=== PATIENT | male | born 1950 | race Caucasian/White ===

== ENCOUNTER 2019-08-28 07:52 | Inpatient (IN) | payer BC, OTHER, MEDICARE ==
[~2019-08-28] VITALS: Ht 180.3 cm; Wt 107.5 kg
[2019-08-28 16:00] VITALS: BP 140/82
[2019-08-28] MEDS ORDERED: DEXTROSE 50% 50 ML SYRINGE IV PRN (16:30)
[2019-08-28] MEDS ORDERED: GLUCOSE 4GM CHEW TABLET PO PRN (16:30)
[2019-08-28] MEDS ORDERED: GLUCAGON INJ 1MG VIAL SC PRN (16:30)
[2019-08-28] MEDS ORDERED: CELE1CAP9 PO (17:02)
[2019-08-28] MEDS ORDERED: AMLO5TAB6 PO (17:02)
[2019-08-28] MEDS ORDERED: DULO-34 PO (17:02)
[2019-08-28] MEDS ORDERED: ALLO100T PO (17:02)
[2019-08-28] MEDS ORDERED: GEMF600T5 PO (17:02)
[2019-08-28] MEDS ORDERED: FARX1TAB3 PO (17:02)
[2019-08-28] MEDS ORDERED: IRBE75TA4 PO (17:02)
[2019-08-28] MEDS ORDERED: GLIP5TAB8 PO (17:02)
[2019-08-28] MEDS ORDERED: METF10004 PO (17:02)
[2019-08-28] MEDS ORDERED: VITAD1000T PO (17:31)
[2019-08-28] MEDS ORDERED: ASPI81TA85 PO (17:31)
[2019-08-28] MEDS ORDERED: VITA-172 PO (17:31)
[2019-08-28] MEDS ORDERED: VITA-158 PO (17:31)
[2019-08-28] MEDS ORDERED: QC A650T3 PO (17:31)
--- NOTE | 2019-08-28 17:57 | ECGEPIP ---
[facility] Test Date: 2019-08-28 Pat Name: CARL MORILLO Department: Room: [place] [address] Gender: Male [employer] Chem[employer]: : [id number] Requested By: YOLANDA Head Order Number: [id number] Reading MD: Katie Garrett Measurements Intervals [place] Rate: 98 P: 57 VA: 201 QRS: -65 QRSD: 174 T: 101 QT: 403 QTc: 515 Interpretive Statements ELECTRONIC VENTRICULAR PACEMAKER SINIS RHYTHM 1ST DEGREE BLOCK LAE NO PRIOR Electronically Signed on 08-28-2019 17:57:48 EDT by Katie Garrett
[2019-08-28] MEDS ORDERED: metFORMIN (GLUCOPHAGE) 1000 MG TABLET PO SCH (18:00)
[2019-08-28] MEDS: FUROSEMIDE 40MG/4ML VIAL (J1940) IV SCH (18:05)
[2019-08-28 18:44] LABS: BASO # 0.1 10^3/uL (0.0-0.2); BASO % 0.5 % (0.0-1.0); HEMATOCRIT 44.4 % (42.0-52.0); HEMOGLOBIN 13.8 g/dl (13.5-17.5); LYMPH # 1.8 10^3/uL (1.5-5.0); LYMPH % 15.9 % (24.0-44.0); MEAN CORPUSCULAR HEMOGLOBIN 28.8 pg (27.0-33.0); MEAN CORPUSCULAR HGB CONC 31.1 g/dl (32.0-36.5); MEAN CORPUSCULAR VOLUME 92.7 fl (80.0-96.0); MONO % 8.5 % (0.0-5.0); NEUTROPHILS # 8.4 10^3/uL (1.5-8.5); NEUTROPHILS % 74.8 % (36.0-66.0); PLATELET COUNT, AUTOMATED 259 10^3/uL (150-450); RED BLOOD COUNT 4.79 10^6/uL (4.30-6.10); WHITE BLOOD COUNT 11.2 10^3/uL (4.0-10.0)
[2019-08-28 19:14] LABS: CK-MB VALUE MASS 2.8 NG/ML (<3.6); MB/CK RELATIVE INDEX 1.1 (< OR =4); TROPONIN I 0.05 NG/ML (< 0.10)
[2019-08-28 19:19] LABS: ALBUMIN 3.9 GM/DL (3.2-5.2); ALT/SGPT 30 U/L (12-78); BILIRUBIN,TOTAL 0.7 MG/DL (0.2-1.0); BLOOD UREA NITROGEN 21 MG/DL (7-18); C REACTIVE PROTEIN QUANTITATIV 2.38 MG/DL (0.00-0.30); CALCIUM LEVEL 9.6 MG/DL (8.8-10.2); CARBON DIOXIDE LEVEL 29 MEQ/L (21-32); CHLORIDE LEVEL 101 MEQ/L (98-107); CREATININE FOR GFR 1.09 MG/DL (0.70-1.30); GLOMERULAR FILTRATION RATE > 60.0 (>42); GLUCOSE, FASTING 149 MG/DL (70-100); POTASSIUM SERUM 4.3 MEQ/L (3.5-5.1); SODIUM LEVEL 140 MEQ/L (136-145); TOTAL PROTEIN 7.8 GM/DL (6.4-8.2)
--- NOTE | 2019-08-28 19:22 | REP ---
AP PORTABLE CHEST: 08/28/2019. Clinical history: Dyspnea. Findings: No prior studies. Dual lead pacer in the left upper chest with leads in the right atrium and right ventricle. There is cardiomegaly with left atrial and ventricular enlargement. Underlying fibrosis is noted with diffuse vascular redistribution and interstitial changes suggesting some degree of pulmonary edema. Small effusions are suspected. The aorta is intact. Airway intact and midline. There are degenerative changes of the spine and shoulders. Impression: 1. Cardiomegaly with left atrial and ventricular enlargement, vascular redistribution and some pulmonary edema. Suspect some small effusions as well. Some interstitial fibrotic changes are also suspected. No dense consolidation. 2. Dual lead pacer with leads in the right atrium and right ventricle. Electronically Signed by Arvin Oliver MD 08/28/2019 07:14 P
[2019-08-28 19:30] LABS: ERYTHROCYTE SEDIMENTATION RATE 39 mm/hr (0-20)
[2019-08-28] MEDS ORDERED: ACETAMINOPHEN 650MG ER TAB (TYLENOL ARTHRITIS) PO PRN (19:30)
[2019-08-28] MEDS ORDERED: ISOVUE-370 76% 100ML VIAL As Ordered ONE (19:47)
--- NOTE | 2019-08-28 20:40 | REPVR ---
PROCEDURE INFORMATION: Exam: CT Angiography Chest With Contrast Exam date and time: 08/28/2019 8:04 PM Age: 69 years old Clinical indication: Other: Hypoxia R/O pe TECHNIQUE: Imaging protocol: Computed tomographic angiography of the chest with intravenous contrast. 3D rendering: MIP and/or 3D reconstructed images were created by the technologist. Radiation optimization: All CT scans at this facility use at least one of these dose optimization techniques: automated exposure control; mA and/or kV adjustment per patient size (includes targeted exams where dose is matched to clinical indication); or iterative reconstruction. Contrast material: ISOVUE 370; Contrast volume: 74 ml; Contrast route: INTRAVENOUS (IV); COMPARISON: MS PORTABLE CHEST X-RAY 08/28/2019 6:18 PM FINDINGS: Pulmonary arteries: There are no pulmonary emboli. Aorta: The aorta demonstrates mild atherosclerotic calcification. There is no aortic dissection or aneurysm. Lungs: Multiple bilateral semi-solid and ground-glass opacities, predominantly peripherally located. Findings consistent with multifocal pneumonitis likely viral. Pleural space: Small bilateral pleural effusions, right greater than left. Heart: Cardiomegaly. There is moderate atherosclerotic calcification of the coronary arteries. Lymph nodes: Multiple small mediastinal lymph nodes likely postinflammatory. Bones/joints: The spine demonstrates moderate degenerative changes with DISH disease. Osteoporosis. Soft tissues: Unremarkable. IMPRESSION: 1. Multiple bilateral semi-solid and ground-glass opacities, predominantly peripherally located. Findings consistent with multifocal pneumonitis likely viral. 2. Small bilateral pleural effusions, right greater than left. 3. Cardiomegaly. 4. There is no aortic dissection or aneurysm. 5. There are no pulmonary emboli. 6. Multiple small mediastinal lymph nodes likely postinflammatory. Electronically signed by: Jony Avila On 08/28/2019 20:39:39 PM
[2019-08-28] MEDS: HumaLOG INSULIN (NovoLOG) PER UNIT SC SCH (21:00)
[2019-08-28] MEDS: gemfibroziL 600 MG TAB PO SCH (21:46)
[2019-08-28 22:00] VITALS: BP 135/64
--- NOTE | 2019-08-28 22:33 | HPE ---
DATE OF ADMISSION: 08/28/2019 CHIEF COMPLAINT: Cold symptoms for two weeks. 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 The patient had noticed this with exertion initially, then progressively it was at rest. He denied any chest pain, pressure or tightness, lightheadedness or dizziness. No prior episodes of dyspnea on exertion before. The patient was working last night. He also noted a cough productive of yellow sputum without fever or chills at home. He has had a weight loss from 250 pounds to 240 pounds recently. He has two pillow orthopnea usually and sleeps on a Posturepedic bed at home due to his reflux. The patient denies any lower extremity edema, but was told by staff members in the emergency room (ER) that he had 2+ pitting edema. He was seen in the emergency room (ER) yesterday and was given IV Lasix with diuresis and improvement in shortness of breath. Due to the inability to obtain COVID testing, the patient was transferred subsequently to [facility]. COVID was negative at [facility]. Chest x-ray showed bibasilar infiltrates, afebrile with no white count. Hospitalist was asked to admit the patient for congestive heart failure, rule out COVID. PAST MEDICAL HISTORY: 1. 3rd degree atrioventricular (AV) block requiring pacemaker follows with Dr. Roge Borges in [place]. 2. Reflux. 3. Diabetes. 4. Hypertension. 5. Obesity. 6. Osteoarthritis. 7. Shoulder osteoarthritis. 8. Gout. 9. Hyperlipidemia. PAST SURGICAL HISTORY: Pacemaker placement, left knee replacement, right shoulder surgery. ALLERGIES: No known drug allergies. HOME MEDICATIONS: - acetaminophen 650 mg by mouth three times a day as needed for pain - allopurinol 100 mg daily - amlodipine 5 mg daily - ascorbic acid 500 mg daily - aspirin 81 mg daily. - vitamin D 1000 units daily. - vitamin B12 500 mcg daily - gemfibrozil 200 mg twice a day - glipizide 5 mg twice a day - metformin 1 gram twice a day - Farxiga 5 mg daily - duloxetine 40 mg at bedtime (q.h.s.) - irbesartan 75 mg daily SOCIAL HISTORY: Quit smoking 30 years ago. Previously smoked a pack a daily from his late 20s to 30 years ago. No alcohol use. No recreational drug use. The patient works "[employer]" and help with activities of daily living with mentally handicapped patient's FAMILY HISTORY: Mother age 89, diabetes. Father age 56, coronary artery disease, valve replacement. REVIEW OF SYSTEMS: Per history of present illness. 12-point system otherwise negative. PHYSICAL EXAMINATION: Temperature 98.7, pulse 101, respiratory rate 22, blood pressure 140/82, 95% on 2 liters nasal cannula. General: The patient has mild respiratory distress. No use of respiratory accessory muscles. He is able to complete a sentence in 7 to 8 words per sentence. No cyanosis, icterus or jaundice. The patient's pupils are round, reactive to light and accommodation. Extraocular muscles are intact. Mild positive jugular venous distension. No thyromegaly or cervical lymphadenopathy. Moist mucous membranes. Lungs: Diminished breath sounds with bibasilar rales. Heart: S1, S2, sinus rhythm. Pacer noted in the anterior chest. Abdomen is obese, soft, nontender, nondistended. Positive bowel sounds in four quadrants. No abdominal bruit. No fluid wave. Extremities: 2+ pitting edema bilaterally. LABORATORY DATA: White count of 11.2, hemoglobin 13, hematocrit 44, platelet count 259, 74% neutrophils. Metabolic panel pending. BNP is 2969. Troponin 0.05. Thyroid simulating hormone (TSH), procalcitonin still pending. Blood culture is pending. COVID-19 is negative. Chest x-ray: Bibasilar infiltrate. ASSESSMENT AND PLAN: This is a 69-year-old male with history of diabetes, hypertension, obesity, hypercholesterolemia, reflux, prior history of smoking, pacemaker due to 3rd degree atrioventricular (AV) block, left knee surgery and right shoulder surgery, presented to the [facility] emergency room with two week history of cold symptoms found to have bilateral infiltrates on x-ray. Sent to [facility] for COVID testing. The patient improved on IV Lasix. He has been transferred here and currently being treated for the followin. Congestive heart failure, new onset. The patient has not been at [facility] before. Will obtain an echocardiogram. Lasix 40 mg IV every 6 hours. Strict input and output, daily weights, 2 liter fluid restriction. Electrocardiogram (EKG) had no acute STT wave changes. Will obtain records from Dr. oBrges's office and may need a stress test as outpatient to evaluate for coronary artery disease. 2-D echo will be done to evaluate for valvular disease and systolic function. We will place the patient on telemetry to rule out arrhythmias as the cause of recent decompensation and having a fluid restriction and dietary indiscretion with increasing salt intake. 2. Cough productive of yellow-white sputum. The patient appears to have some bronchitis. He has never been diagnosed with chronic obstructive pulmonary disease (COPD), but had a smoker but quit many years ago. At this time, the patient has no signs of a pneumonia, COVID is negative, afebrile. Slightly increased white count of 11.2. He will not be given empiric antibiotics, but will check the sputum for Gram stain and sensitivity. 3. Obstructive sleep apnea. May resume on home CPAP. 4. History of reflux. Continue on proton pump inhibitor (PPI). 5. Diabetes on sliding scale. Consistent carbohydrate diet, 2 gram sodium restriction. Fingersticks before food and at bedtime (hs) with coverage. 6. Hypertension, currently 140 systolic, may be resume in his home medications with holding parameters, to allow Lasix to work and prevent hypotension. 7. Vitamin D deficiency, resume vitamin D daily. 8. Vitamin B12 deficiency on 500 mg daily. 9. Obesity, weight loss and diet. Optimize the patient's diabetes and cholesterol medications. Check lipid panel in the morning.
[2019-08-29] MEDS: FUROSEMIDE 40MG/4ML VIAL (J1940) IV SCH ×2 (00:35→05:56)
[2019-08-29 00:40] LABS: CK-MB VALUE MASS 2.5 NG/ML (<3.6); MB/CK RELATIVE INDEX 0.98 (< OR =4); TROPONIN I 0.07 NG/ML (< 0.10)
[2019-08-29 06:00] VITALS: BP 128/76
[2019-08-29 06:33] LABS: BASO # 0.1 10^3/uL (0.0-0.2); BASO % 0.8 % (0.0-1.0); HEMATOCRIT 43.4 % (42.0-52.0); HEMOGLOBIN 13.6 g/dl (13.5-17.5); LYMPH # 1.5 10^3/uL (1.5-5.0); LYMPH % 16.7 % (24.0-44.0); MEAN CORPUSCULAR HEMOGLOBIN 28.9 pg (27.0-33.0); MEAN CORPUSCULAR HGB CONC 31.3 g/dl (32.0-36.5); MEAN CORPUSCULAR VOLUME 92.1 fl (80.0-96.0); MONO % 11.3 % (0.0-5.0); NEUTROPHILS # 6.3 10^3/uL (1.5-8.5); PLATELET COUNT, AUTOMATED 223 10^3/uL (150-450); RED BLOOD COUNT 4.71 10^6/uL (4.30-6.10); WHITE BLOOD COUNT 8.8 10^3/uL (4.0-10.0)
[2019-08-29 07:07] LABS: BLOOD UREA NITROGEN 21 MG/DL (7-18); CALCIUM LEVEL 9.3 MG/DL (8.8-10.2); CARBON DIOXIDE LEVEL 33 MEQ/L (21-32); CHLORIDE LEVEL 99 MEQ/L (98-107); CREATININE FOR GFR 0.98 MG/DL (0.70-1.30); GLOMERULAR FILTRATION RATE > 60.0 (>42); GLUCOSE, FASTING 140 MG/DL (70-100); POTASSIUM SERUM 3.8 MEQ/L (3.5-5.1); SODIUM LEVEL 139 MEQ/L (136-145)
[2019-08-29 07:14] LABS: CHOLESTEROL RISK RATIO 4.21 (<5); CK-MB VALUE MASS 2.6 NG/ML (<3.6); MB/CK RELATIVE INDEX 1.02 (< OR =4); THYROID STIMULATING HORMONE 1.37 uIU/ML (0.358-3.740); TROPONIN I 0.07 NG/ML (< 0.10)
[2019-08-29 07:36] LABS: HEMOGLOBIN A1c 7.5 %
[2019-08-29] MEDS: ASCORBIC ACID 500 MG TAB PO SCH (08:27)
[2019-08-29] MEDS: VITAMIN D 1,000 INTERNATIONAL UNITS TABLET PO SCH (08:27)
[2019-08-29] MEDS: allopurinoL 100 MG TAB PO SCH (08:27)
[2019-08-29] MEDS: HumaLOG INSULIN (NovoLOG) PER UNIT SC SCH ×4 (08:27→21:00)
[2019-08-29] MEDS: ASPIRIN 81 MG ENTERIC TAB PO SCH (08:28)
[2019-08-29] MEDS: CYANOCOBALAMIN 500 MCG TAB PO SCH (08:28)
[2019-08-29] MEDS: glipiZIDE (GLUCOTROL) 5 MG TAB PO SCH ×2 (08:28→17:10)
[2019-08-29] MEDS: gemfibroziL 600 MG TAB PO SCH ×2 (08:28→21:31)
[2019-08-29] MEDS: amLODIPine 5 MG TAB PO SCH (08:30)
[2019-08-29] MEDS: HEPARIN SOD (PORCINE) 5000UNITS/ML VIAL (J1644 PER 1000UNITS) SQ SCH ×2 (10:26→21:31)
--- NOTE | 2019-08-29 10:41 | IPNPDOC ---
Text Note Date of Service The patient was seen on 08/29/19. NOTE Assessment: 69yo M with history of diabetes,hypertension, obesity, hypercholesterolemia, reflux, prior history of smoking, pacemaker due to 3rd degree atrioventricular (AV) block who presented to [facility] emergency dept with two week history of cold symptoms found to have bilateral infiltrates on x-ray and then sent to [facility] for COVID testing where he improved on lasix with newly noted HF. 1. Congestive heart failure, new onset. -follow up echocardiogram. -Got lasix 40 IV x 3 over the last 24h. will give lasix 40 IV once at noon (last dose was at 5AM) -Strict input and output -daily weights -2 liter fluid restriction -Electrocardiogram (EKG) had no acute STT wave changes. -Patient of Dr. Avilas, will discuss with Dr. Chavarria -Telemetry to rule out arrhythmias as the cause of recent decompensated state 2. Cough productive of yellow-white sputum likely from bronchitis. He has never been diagnosed with chronic obstructive pulmonary disease (COPD), but was a smoker but quit many years ago. -With a productive cough, bibasilar infiltrates and sputum gram stain with mixed adria - will start PO levaquin -COVID negative -f/u sputum culture -monitor 3. Obstructive sleep apnea. -on home CPAP. 4. GERD. -Continue on proton pump inhibitor (PPI). 5. Diabetes. -Consistent carbohydrate diet, 2 gram sodium restriction. -Fingersticks before food and at bedtime (hs) with coverage. 6. Hypertension -continue home medications 7. Vitamin D deficiency -continue vitamin D daily. 8. Vitamin B12 deficiency -continue 500 mg daily. 9. Obesity, weight loss and diet. -Optimize the patient's diabetes and cholesterol medications. DVT ppx: heparin SQ BID VS,Fishbone, I+O VS, Fishbone, I+O Laboratory Tests 08/28/19 18:29 08/29/19 05:58 Vital Signs Date Time Temp Pulse Resp B/P (MAP) Pulse Ox O2 Delivery O2 Flow Rate FiO2 08/29/19 08:30 94 126/78 08/29/19 06:00 97.4 20 97 Nasal Cannula 2.0 I&O- Last 24 Hours up to 6 AM 08/29/19 06:00 Intake Total 600 ml Output Total 3825 ml Balance -3225 ml [id number]-ADITYA,CHARLES V. MD Aug 29, 2019 09:24
[2019-08-29] MEDS: LevoFLOXacin 750 MG TABLET PO SCH (11:41)
[2019-08-29 14:00] VITALS: BP 125/79
[2019-08-29 22:00] VITALS: BP 135/87
[2019-08-30 06:00] VITALS: BP 133/82
[2019-08-30] MEDS: LevoFLOXacin 750 MG TABLET PO SCH (06:07)
[2019-08-30 07:11] LABS: BASO # 0.1 10^3/uL (0.0-0.2); BASO % 0.7 % (0.0-1.0); HEMATOCRIT 44.9 % (42.0-52.0); HEMOGLOBIN 14.1 g/dl (13.5-17.5); LYMPH # 1.6 10^3/uL (1.5-5.0); LYMPH % 20.2 % (24.0-44.0); MEAN CORPUSCULAR HGB CONC 31.4 g/dl (32.0-36.5); MEAN CORPUSCULAR VOLUME 92.4 fl (80.0-96.0); MONO # 1.1 10^3/uL (0.0-0.8); NEUTROPHILS # 5.3 10^3/uL (1.5-8.5); NEUTROPHILS % 65.9 % (36.0-66.0); PLATELET COUNT, AUTOMATED 252 10^3/uL (150-450); RED BLOOD COUNT 4.86 10^6/uL (4.30-6.10); WHITE BLOOD COUNT 8.1 10^3/uL (4.0-10.0)
[2019-08-30] MEDS: HumaLOG INSULIN (NovoLOG) PER UNIT SC SCH ×2 (07:30→11:42)
[2019-08-30 07:32] LABS: BLOOD UREA NITROGEN 26 MG/DL (7-18); CALCIUM LEVEL 9.2 MG/DL (8.8-10.2); CARBON DIOXIDE LEVEL 30 MEQ/L (21-32); CHLORIDE LEVEL 101 MEQ/L (98-107); CREATININE FOR GFR 1.04 MG/DL (0.70-1.30); GLOMERULAR FILTRATION RATE > 60.0 (>42); GLUCOSE, FASTING 151 MG/DL (70-100); POTASSIUM SERUM 3.9 MEQ/L (3.5-5.1); SODIUM LEVEL 140 MEQ/L (136-145)
[2019-08-30] MEDS: glipiZIDE (GLUCOTROL) 5 MG TAB PO SCH (07:45)
[2019-08-30 07:46] VITALS: BP 134/82
[2019-08-30] MEDS: allopurinoL 100 MG TAB PO SCH (07:46)
[2019-08-30] MEDS: ASCORBIC ACID 500 MG TAB PO SCH (07:46)
[2019-08-30] MEDS: CYANOCOBALAMIN 500 MCG TAB PO SCH (07:46)
[2019-08-30] MEDS: gemfibroziL 600 MG TAB PO SCH (07:46)
[2019-08-30] MEDS: amLODIPine 5 MG TAB PO SCH (07:46)
[2019-08-30] MEDS: HEPARIN SOD (PORCINE) 5000UNITS/ML VIAL (J1644 PER 1000UNITS) SQ SCH (07:47)
[2019-08-30] MEDS: ASPIRIN 81 MG ENTERIC TAB PO SCH (07:47)
[2019-08-30] MEDS: VITAMIN D 1,000 INTERNATIONAL UNITS TABLET PO SCH (07:47)
--- NOTE | 2019-08-30 09:24 | ECHO ---
DATE OF PROCEDURE: 08/29/2019 REFERRING PHYSICIAN: Dr. Stoney Cordova INDICATION: Dyspnea. HEIGHT: 180 cm WEIGHT: 109 kg. DIMENSIONS: IVS: 1.4 LV: 5.5 LVPW: 1.4 LA: 5.5 Aorta: 3.3 IVC: 1.9 Mitral E wave velocity: 149 E prime septal: 5.9 E prime lateral: 4.9 FINDINGS: The study is of acceptable technical quality. The patient is likely in atrial fibrillation with ventricular paced rhythm. Left ventricle is borderline dilated. There is an extensive wall motion abnormality that involves the mid and distal septum, distal anterior wall, distal inferior wall, and whole apex. These segments are almost akinetic. Remaining left ventricle (LV) segments appear to have mildly reduced contractility. I would estimate overall left ventricular ejection fraction (LVEF) approximately 30%. The right ventricle appears to be normal size. Both atria are severely enlarged, the left atrium much more than the right. The aortic valve is heavily sclerotic. Motion of the cusps though appears reasonably preserved. There are also degenerative abnormalities of the mitral valve, but mobility of the leaflets is preserved. The tricuspid and pulmonic valves appear normal. Trivial pericardial effusion is noted. The inferior vena cava is upper limits of normal size, but collapses with respiration. The aortic root appears grossly normal. Aortic arch and abdominal aorta were not seen. Doppler interrogation of aortic valve reveals trivial stenosis (mean gradient 7 mmHg) and no insufficiency. There is mild mitral and mild tricuspid insufficiency. Calculated pulmonary artery pressure is around 50 mmHg corresponding to moderate pulmonary hypertension. The pulmonic valve is functionally competent. Evaluation of diastolic function is inconclusive, there is only one wave on mitral inflow which makes me deduct that the patient is most likely in atrial fibrillation with ventricular rate. Consequently, assessment of diastolic function is inaccurate. CONCLUSIONS: 1. Study is of fair technical quality. The patient is in atrial fibrillation with ventricular paced rhythm. 2. Borderline dilated left ventricle with extensive wall motion abnormality as noted above and overall LVEF estimated around 30%. 3. Right ventricle is not dilated. 4. Severe biatrial enlargement. 5. Very prominent aortic sclerosis, but only trivial stenosis and no insufficiency. 6. Mild mitral and tricuspid insufficiency. 7. Elevated central venous pressure and at least moderate pulmonary hypertension. 8. Presence of pacemaker in right-sided heart chambers. COMMENT: The study is most consistent with ischemic cardiomyopathy and probably chronic atrial fibrillation.
[2019-08-30] MEDS ORDERED: MOM 30ML SUSPENSION UDC PO ONE (11:30)
[2019-08-30] MEDS ORDERED: FUROSEMIDE 40MG/4ML VIAL (J1940) IV ONE (11:30)
[2019-08-30] MEDS ORDERED: TORS20TA2 PO (11:42)
[2019-08-30] MEDS ORDERED: SENN8.6T58 PO (11:44)
--- NOTE | 2019-08-30 22:20 | DS.PDOC ---
Discharge Summary General Date of Admission Aug 28, 2019 at 16:00 Date of Discharge 08/30/19 Discharge Summary PROCEDURES PERFORMED DURING STAY: ECHO: 1. Study is of fair technical quality. The patient is in atrial fibrillation with ventricular paced rhythm. 2. Borderline dilated left ventricle with extensive wall motion abnormality as noted above and overall LVEF estimated around 30%. 3. Right ventricle is not dilated. 4. Severe biatrial enlargement. 5. Very prominent aortic sclerosis, but only trivial stenosis and no insufficiency. 6. Mild mitral and tricuspid insufficiency. 7. Elevated central venous pressure and at least moderate pulmonary hypertension. 8. Presence of pacemaker in right-sided heart chambers. COMMENT: The study is most consistent with ischemic cardiomyopathy and probably chronic atrial fibrillation. DISCHARGE DIAGNOSES: Acute Systolic CHF. Ischemic cardiomyopathy Viral Pneumonitis Chronic atrial fibrillation with ventricular pacing Moderate pulmonary hypertension COMPLICATIONS/CHIEF COMPLAINT: Shortness Of Breath. HOSPITAL COURSE: 69yo M with history of diabetes,hypertension, obesity, hypercholesterolemia, reflux, prior history of smoking, pacemaker due to 3rd degree atrioventricular (AV) block who presented to [facility] emergency dept with two week history of cold symptoms found to have bilateral infiltrates on x- ray and then sent to [facility] for COVID testing where he improved on lasix with newly noted CHF. COVID was negative, resp panel was negative. CTA showed features of possible viral pneumonitis. Echo done showed acute systolic CHF with EF of 30% felt to be due to ischemic cardiomyopathy. Acute systolic CHF possibly due to ischemic cardiomyopathy EF of 30% with regional wall motion abnormality discussed with Dr Borges will see him in the office next week. torsemide daily lisinopril 5 mg daily 2 L fluid restriction. Pneumonia/Pneumonitis patient did get 2 days of Levaquin but was discontinued as there was no fever or elevated WBC, procalcitonin not elevated at 0.04 probably viral pneumonitis. Chronic atrial fibrillation with pacemaker in place. H/O Third degree heart block pacemaker in place. Obesity with Obstructive sleep apnea. on home CPAP. GERD. Continue on proton pump inhibitor (PPI). Diabetes. Consistent carbohydrate diet, 2 gram sodium restriction. continue home meds. Hypertension continue home medications Vitamin D deficiency continue vitamin D daily. Vitamin B12 deficiency continue 500 mg daily. DISCHARGE MEDICATIONS: Please see below. ALLERGIES: Please see below. PHYSICAL EXAMINATION ON DISCHARGE: VITAL SIGNS: Please see below. Gen: well appearing, in no acute distress HEENT: NCAT, EOMI, MMM Neck: supple , no JVD. Pulmonary: clear to auscultation, no wheezing or crackles. Cardiac: s1, s2 regular, no murmur, rub or gallop Abdomen: soft , nontender, normal bowel sounds. Ext: No edema LABORATORY DATA: Please see below. IMAGING: CTA of chest 1. Multiple bilateral semi-solid and ground-glass opacities, predominantly peripherally located. Findings consistent with multifocal pneumonitis likely viral. 2. Small bilateral pleural effusions, right greater than left. 3. Cardiomegaly. 4. There is no aortic dissection or aneurysm. 5. There are no pulmonary emboli. 6. Multiple small mediastinal lymph nodes likely postinflammatory. 7. Bones/joints: The spine demonstrates moderate degenerative changes with DISH disease. Osteoporosis. ACTIVITY: [As tolerated]. DIET: Carb consistent, 2 L fluid restriction DISPOSITION: 01 Home, Self-Care. DISCHARGE INSTRUCTIONS: Follow up PMD in [address] Borges in 1 week ITEMS TO FOLLOWUP ON ON OUTPATIENT: BMP on 09/02/19 Follow up sputum culture. DISCHARGE CONDITION: [Stable]. TIME SPENT ON DISCHARGE: 35 minutes. Vital Signs/I&Os Vital Signs Date Time Temp Pulse Resp B/P (MAP) Pulse Ox O2 Delivery O2 Flow Rate FiO2 08/30/19 07:46 96 134/82 08/30/19 06:00 98.1 20 97 Nasal Cannula 2.0 I&O- Last 24 Hours up to 6 AM 08/30/19 07:00 Intake Total 2120 ml Output Total 1850 ml Balance 270 ml Laboratory Data Labs 24H Laboratory Tests 2 08/30/19 06:38: Immature Granulocyte % (Auto) 0.2, Neutrophils (%) (Auto) 65.9, Lymphocytes (%) (Auto) 20.2L, Monocytes (%) (Auto) 13.0H, Eosinophils (%) (Auto) 0.0, Basophils (%) (Auto) 0.7, Neutrophils # (Auto) 5.3, Lymphocytes # (Auto) 1.6, Monocytes # (Auto) 1.1H, Eosinophils # (Auto) 0.0, Basophils # (Auto) 0.1, Nucleated Red Blood Cells % (auto) 0.0, Anion Gap 9, Glomerular Filtration Rate > 60.0, Calcium Level 9.2 08/30/19 11:38: Bedside Glucose (Misc Panel) 107 CBC/BMP Laboratory Tests 08/30/19 06:38 FSBS Laboratory Tests Test 08/30/19 11:38 Range/Units Bedside Glucose (Misc Panel) 107 83-110 MG/DL Microbiology Microbiology 08/29/19 Gram Stain - Final, Resulted 08/29/19 Sputum Culture, Resulted Pending 08/28/19 Blood Culture - Preliminary, Resulted No Growth after 48 hours. All Specime... 08/28/19 Respiratory Virus Panel (PCR) (ANN) - Final, Complete Discharge Medications Scheduled Allopurinol (Allopurinol) 100 Mg Tablet, 100 MG PO DAILY, (Reported) Amlodipine Besylate (Amlodipine Besylate) 5 Mg Tablet, 5 MG PO DAILY, (Reported) Ascorbic Acid (Vitamin C) 500 Mg Tablet, 500 MG PO DAILY, (Reported) Aspirin (Aspir 81) 81 Mg Tablet.dr, 81 MG PO DAILY, (Reported) Celecoxib (Celecoxib) 200 Mg Capsule, 200 MG PO DAILY, (Reported) Cholecalciferol (Vitamin D3) (Vitamin D3) 1,000 Unit Tablet, 1,000 UNITS PO DAILY, (Reported) Cyanocobalamin (Vitamin B-12) (Vitamin B-12) 500 Mcg Tablet, 500 MCG PO DAILY, (Reported) Dapagliflozin Propanediol (Farxiga) 10 Mg Tablet, 5 MG PO DAILY, (Reported) Duloxetine HCl (Duloxetine HCl) 40 Mg Capsule.dr, 40 MG PO QHS, (Reported) Gemfibrozil (Gemfibrozil) 600 Mg Tablet, 600 MG PO BID, (Reported) Glipizide (Glipizide) 5 Mg Tablet, 10 MG PO BID, (Reported) Irbesartan (Irbesartan) 75 Mg Tablet, 75 MG PO DAILY, (Reported) Metformin HCl (Metformin HCl) 1,000 Mg Tablet, 1,000 MG PO BID, (Reported) Torsemide (Torsemide) 20 Mg Tablet, 1 TAB PO DAILY Scheduled PRN Acetaminophen (Acetaminophen 8 Hour) 650 Mg Tablet.er, 650 MG PO TID PRN for PAIN, (Reported) Sennosides (Senna) 8.6 Mg Tablet, 2 TAB PO DAILYPRN PRN for CONSTIPATION Allergies Coded Allergies: No Known Allergies (Unverified , 08/28/19) EDGAR JORDAN MD Aug 30, 2019 22:20
[2019-08-31] MEDS ORDERED: FUROSEMIDE 40 MG TAB PO SCH (09:00)
[2019-08-31] MEDS ORDERED: lisinopriL 5 MG TAB PO SCH (09:00)
== END 2019-08-30 14:36 | disposition home or self-care (01) | DRG 194 ==
LOC: M MSPAV 16:00
PROVIDERS: ADMIT Internal Medicine; ATTEND Internal Medicine Nephrology
DX: I11.0 Hypertensive heart disease with heart failure (principal); I44.2 Atrioventricular block, complete; E11.9 Type 2 diabetes mellitus without complications; I48.20 Chronic atrial fibrillation, unspecified; I25.5 Ischemic cardiomyopathy; K21.9 Gastro-esophageal reflux disease without esophagitis; E66.9 Obesity, unspecified; G47.33 Obstructive sleep apnea (adult) (pediatric); M10.9 Gout, unspecified; E78.5 Hyperlipidemia, unspecified; I50.21 Acute systolic (congestive) heart failure; J40 Bronchitis, not specified as acute or chronic; E55.9 Vitamin D deficiency, unspecified; E53.8 Deficiency of other specified B group vitamins; Z68.33 Body mass index [BMI] 33.0-33.9, adult; Z11.59 Encounter for screening for other viral diseases; Z95.0 Presence of cardiac pacemaker; Z96.641 Presence of right artificial hip joint; Z87.891 Personal history of nicotine dependence; Z79.899 Other long term (current) drug therapy; Z79.84 Long term (current) use of oral hypoglycemic drugs; Z79.82 Long term (current) use of aspirin

== ENCOUNTER → 2021-08-14 | Outpatient (REF) | payer BC, OTHER ==
[~2021-08-14] MED LIST: ALLO100T PO; AMLO1TAB24 PO; ASPI81TA86 PO; CELE1CAP9 PO; DULO-34 PO; FARX1TAB3 PO; GEMF600T5 PO; GLIP5TAB8 PO; IRBE75TA4 PO; METF10004 PO; QC A650T3 PO; SENN8.6T58 PO; TORS20TA2 PO; VITA-158 PO; VITA-172 PO; VITA100093 PO
== END ==
LOC: M LAB REF 16:30
PROVIDERS: ATTEND Podiatrist Foot & Ankle Surgery
DX: M86.171 Other acute osteomyelitis, right ankle and foot (principal)

== ENCOUNTER 2021-08-30 21:20 | Inpatient (IN) | payer BC, OTHER, MEDICARE ==
[~2021-08-30] VITALS: Ht 180.3 cm; Wt 80.1 kg
[2021-08-31] VITALS (8 sets, daily range): BP systolic 70–136; BP diastolic 39–70
[2021-08-31] MEDS ORDERED: ACETAMINOPHEN TAB 650MG DOSE (2X325MG) PO PRN (03:10)
[2021-08-31] MEDS ORDERED: GLUCOSE 4GM CHEW TABLET PO PRN (03:10)
[2021-08-31] MEDS ORDERED: DEXTROSE 50% 50 ML SYRINGE IV PRN (03:10)
[2021-08-31] MEDS ORDERED: GLUCAGON INJ 1MG VIAL SC PRN (03:10)
[2021-08-31] MEDS ORDERED: ASPI81TA26 PO (04:19)
[2021-08-31] MEDS ORDERED: FARX1TAB5 PO (04:19)
[2021-08-31] MEDS ORDERED: LOPI600T PO (04:19)
[2021-08-31] MEDS ORDERED: FURO40TA2 PO (04:24)
[2021-08-31] MEDS ORDERED: METO50TA7 PO (04:24)
[2021-08-31] MEDS ORDERED: VALS40TA9 PO (04:24)
[2021-08-31] MEDS ORDERED: POTA1TAB23 PO (04:24)
[2021-08-31] MEDS ORDERED: THERTAB52 PO (04:24)
[2021-08-31] MEDS ORDERED: SPIR-10 PO (04:24)
[2021-08-31] MEDS ORDERED: FAMO1TAB11 PO (04:24)
[2021-08-31] MEDS ORDERED: HOME MED LIST COMPLETE! XX SCH (04:25)
[2021-08-31] MEDS ORDERED: NS 500 ML IV ONE (06:00)
[2021-08-31 08:05] LABS: HEMATOCRIT 30.2 % (42.0-52.0); HEMOGLOBIN 10.1 g/dl (13.5-17.5); MEAN CORPUSCULAR HEMOGLOBIN 31.3 pg (27.0-33.0); MEAN CORPUSCULAR HGB CONC 33.4 g/dl (32.0-36.5); MEAN CORPUSCULAR VOLUME 93.5 fl (80.0-96.0); PLATELET COUNT, AUTOMATED 282 10^3/uL (150-450); RED BLOOD COUNT 3.23 10^6/uL (4.30-6.10); WHITE BLOOD COUNT 11.3 10^3/uL (4.0-10.0)
[2021-08-31 08:27] LABS: CALCIUM LEVEL 9.1 MG/DL (8.8-10.2); CREATININE FOR GFR 1.49 MG/DL (0.70-1.30); GLOMERULAR FILTRATION RATE 49.2 (>42); POTASSIUM SERUM 3.5 MEQ/L (3.5-5.1)
[2021-08-31] MEDS: INSULIN LISPRO (NovoLOG) PER UNIT SC SCH ×4 (09:18→19:51)
[2021-08-31] MEDS ORDERED: NS 1,000 ML IV SCH (10:30)
[2021-08-31 11:38] LABS: OSMOLALITY URINE 295 MOSM/KG (50-1400)
[2021-08-31 11:52] LABS: SODIUM,RANDOM URINE 45 MEQ/L
[2021-08-31] MEDS: ASCORBIC ACID 500 MG TAB PO SCH (11:54)
[2021-08-31] MEDS: VITAMIN D 1,000 INTERNATIONAL UNITS TABLET PO SCH (11:54)
[2021-08-31] MEDS: allopurinoL 100 MG TAB PO SCH (11:54)
[2021-08-31] MEDS: ASPIRIN 81MG ENTERIC TABLET PO SCH (11:54)
[2021-08-31] MEDS: MULTIVITAMINS/MINERALS THERAP 1 TAB PO SCH (11:54)
[2021-08-31] MEDS: FAMOTIDINE 20 MG TAB PO SCH (11:54)
[2021-08-31] MEDS ORDERED: MUPIROCIN 2% OINT 22 GM TUBE TOP PRN (12:50)
[2021-08-31] MEDS: MUPIROCIN 2% OINT 22 GM TUBE TOP SCH (15:55)
[2021-08-31] MEDS: DULoxetine 20 MG CAP (CYMBALTA) PO SCH (20:46)
[2021-08-31] MEDS ORDERED: POTASSIUM CHLORIDE 10MEQ SR TABLET PO ONE (21:00)
[2021-09-01 06:00] VITALS: BP_SYST 104; BP_SYST 128; BP_SYST 90; BP_DIAS 50; BP_DIAS 56; BP_DIAS 80
[2021-09-01 06:40] LABS: HEMATOCRIT 32.9 % (42.0-52.0); HEMOGLOBIN 10.5 g/dl (13.5-17.5); MEAN CORPUSCULAR HEMOGLOBIN 30.3 pg (27.0-33.0); MEAN CORPUSCULAR HGB CONC 31.9 g/dl (32.0-36.5); MEAN CORPUSCULAR VOLUME 94.8 fl (80.0-96.0); PLATELET COUNT, AUTOMATED 304 10^3/uL (150-450); RED BLOOD COUNT 3.47 10^6/uL (4.30-6.10); WHITE BLOOD COUNT 12.7 10^3/uL (4.0-10.0)
[2021-09-01 07:04] LABS: BLOOD UREA NITROGEN 25 MG/DL (7-18); CALCIUM LEVEL 9.2 MG/DL (8.8-10.2); CARBON DIOXIDE LEVEL 24 MEQ/L (21-32); CHLORIDE LEVEL 105 MEQ/L (98-107); CREATININE FOR GFR 1.22 MG/DL (0.70-1.30); GLOMERULAR FILTRATION RATE > 60.0 (>42); GLUCOSE, FASTING 142 MG/DL (70-100); SODIUM LEVEL 138 MEQ/L (136-145)
[2021-09-01] MEDS ORDERED: NS 500 ML IV SCH (07:30)
[2021-09-01] MEDS: INSULIN LISPRO (NovoLOG) PER UNIT SC SCH ×4 (08:43→20:25)
[2021-09-01] MEDS: cefTRIAXone SOD 1 GM in D5W MINI-BAG PLUS 50 ML IV SCH (08:44)
[2021-09-01] MEDS: allopurinoL 100 MG TAB PO SCH (08:44)
[2021-09-01] MEDS: ASPIRIN 81MG ENTERIC TABLET PO SCH (08:44)
[2021-09-01] MEDS: ASCORBIC ACID 500 MG TAB PO SCH (08:44)
[2021-09-01] MEDS: VITAMIN D 1,000 INTERNATIONAL UNITS TABLET PO SCH (08:44)
[2021-09-01] MEDS: FAMOTIDINE 20 MG TAB PO SCH (08:44)
[2021-09-01] MEDS: MULTIVITAMINS/MINERALS THERAP 1 TAB PO SCH (08:44)
[2021-09-01] MEDS: DOXYCYCLINE HYCLATE 100 MG in D5W MINI-BAG PLUS 100 ML IV SCH ×2 (08:45→20:33)
[2021-09-01] MEDS: MUPIROCIN 2% OINT 22 GM TUBE TOP SCH (08:46)
[2021-09-01 14:38] VITALS: BP_SYST 104; BP_SYST 106; BP_SYST 126; BP_DIAS 46; BP_DIAS 62; BP_DIAS 74
[2021-09-01] MEDS: DULoxetine 20 MG CAP (CYMBALTA) PO SCH (20:33)
[2021-09-01 22:00] VITALS: BP_SYST 113; BP_SYST 117; BP_SYST 121; BP_DIAS 52; BP_DIAS 54; BP_DIAS 56
[2021-09-02 05:56] LABS: HEMATOCRIT 32.1 % (42.0-52.0); HEMOGLOBIN 10.4 g/dl (13.5-17.5); MEAN CORPUSCULAR HEMOGLOBIN 31.3 pg (27.0-33.0); MEAN CORPUSCULAR HGB CONC 32.4 g/dl (32.0-36.5); MEAN CORPUSCULAR VOLUME 96.7 fl (80.0-96.0); PLATELET COUNT, AUTOMATED 274 10^3/uL (150-450); RED BLOOD COUNT 3.32 10^6/uL (4.30-6.10)
[2021-09-02 06:00] VITALS: BP_SYST 119; BP_SYST 122; BP_SYST 124; BP_SYST 92; BP_DIAS 56; BP_DIAS 61; BP_DIAS 62; BP_DIAS 72
[2021-09-02 06:15] LABS: BLOOD UREA NITROGEN 20 MG/DL (7-18); CALCIUM LEVEL 8.6 MG/DL (8.8-10.2); CARBON DIOXIDE LEVEL 26 MEQ/L (21-32); CHLORIDE LEVEL 105 MEQ/L (98-107); CREATININE FOR GFR 1.02 MG/DL (0.70-1.30); GLOMERULAR FILTRATION RATE > 60.0 (>42); GLUCOSE, FASTING 142 MG/DL (70-100); POTASSIUM SERUM 3.9 MEQ/L (3.5-5.1); SODIUM LEVEL 139 MEQ/L (136-145)
[2021-09-02] MEDS ORDERED: ISOVUE-370 76% 100ML VIAL As Ordered ONE (08:07)
[2021-09-02 08:13] LABS: ERYTHROCYTE SEDIMENTATION RATE > 140 mm/hr (0-20)
[2021-09-02] MEDS: ASCORBIC ACID 500 MG TAB PO SCH (08:47)
[2021-09-02] MEDS: MULTIVITAMINS/MINERALS THERAP 1 TAB PO SCH (08:47)
[2021-09-02] MEDS: ASPIRIN 81MG ENTERIC TABLET PO SCH (08:47)
[2021-09-02] MEDS: VITAMIN D 1,000 INTERNATIONAL UNITS TABLET PO SCH (08:47)
[2021-09-02] MEDS: cefTRIAXone SOD 1 GM in D5W MINI-BAG PLUS 50 ML IV SCH (08:47)
[2021-09-02] MEDS: allopurinoL 100 MG TAB PO SCH (08:47)
[2021-09-02] MEDS: INSULIN LISPRO (NovoLOG) PER UNIT SC SCH ×4 (08:47→21:00)
[2021-09-02] MEDS: FAMOTIDINE 20 MG TAB PO SCH (08:47)
[2021-09-02] MEDS: DOXYCYCLINE HYCLATE 100 MG in D5W MINI-BAG PLUS 100 ML IV SCH ×2 (09:42→21:23)
[2021-09-02] MEDS: MUPIROCIN 2% OINT 22 GM TUBE TOP SCH (09:42)
[2021-09-02] MEDS ORDERED: NS 1,000 ML IV SCH (10:40)
[2021-09-02 14:00] VITALS: BP 122/60
[2021-09-02 14:30] VITALS: BP_SYST 109; BP_SYST 122; BP_SYST 123; BP_DIAS 50; BP_DIAS 60; BP_DIAS 62
[2021-09-02 19:39] VITALS: BP 112/51
[2021-09-02] MEDS: DULoxetine 20 MG CAP (CYMBALTA) PO SCH (21:24)
[2021-09-02 22:00] VITALS: BP_SYST 101; BP_SYST 111; BP_SYST 112; BP_DIAS 51; BP_DIAS 53; BP_DIAS 59
[2021-09-03 05:34] VITALS: BP_SYST 103; BP_SYST 105; BP_SYST 116; BP_DIAS 48; BP_DIAS 64
[2021-09-03 05:40] VITALS: BP 116/64
[2021-09-03 06:46] LABS: HEMATOCRIT 28.2 % (42.0-52.0); HEMOGLOBIN 9.3 g/dl (13.5-17.5); PLATELET COUNT, AUTOMATED 239 10^3/uL (150-450); WHITE BLOOD COUNT 12.4 10^3/uL (4.0-10.0)
[2021-09-03 07:10] LABS: BLOOD UREA NITROGEN 18 MG/DL (7-18); CALCIUM LEVEL 8.7 MG/DL (8.8-10.2); CARBON DIOXIDE LEVEL 27 MEQ/L (21-32); CHLORIDE LEVEL 100 MEQ/L (98-107); CREATININE FOR GFR 0.93 MG/DL (0.70-1.30); GLOMERULAR FILTRATION RATE > 60.0 (>42); GLUCOSE, FASTING 157 MG/DL (70-100); POTASSIUM SERUM 3.7 MEQ/L (3.5-5.1); SODIUM LEVEL 134 MEQ/L (136-145)
[2021-09-03] MEDS: cefTRIAXone SOD 1 GM in D5W MINI-BAG PLUS 50 ML IV SCH (08:31)
[2021-09-03] MEDS: VITAMIN D 1,000 INTERNATIONAL UNITS TABLET PO SCH (08:32)
[2021-09-03] MEDS: ASCORBIC ACID 500 MG TAB PO SCH (08:32)
[2021-09-03] MEDS: FAMOTIDINE 20 MG TAB PO SCH (08:32)
[2021-09-03] MEDS: MULTIVITAMINS/MINERALS THERAP 1 TAB PO SCH (08:32)
[2021-09-03] MEDS: allopurinoL 100 MG TAB PO SCH (08:32)
[2021-09-03] MEDS: INSULIN LISPRO (NovoLOG) PER UNIT SC SCH ×4 (08:32→20:39)
[2021-09-03] MEDS: ASPIRIN 81MG ENTERIC TABLET PO SCH (08:32)
[2021-09-03] MEDS: DOXYCYCLINE HYCLATE 100 MG in D5W MINI-BAG PLUS 100 ML IV SCH ×2 (09:29→20:39)
[2021-09-03 14:00] VITALS: BP 119/61
[2021-09-03] MEDS: METOPROLOL SUCC (TopROL XL) 50MG **XL** TAB PO SCH (17:17)
[2021-09-03] MEDS: DULoxetine 20 MG CAP (CYMBALTA) PO SCH (20:39)
[2021-09-03 22:00] VITALS: BP_SYST 117; BP_SYST 121; BP_SYST 126; BP_DIAS 58; BP_DIAS 61; BP_DIAS 64
[2021-09-04 05:35] VITALS: BP_SYST 108; BP_SYST 110; BP_SYST 112; BP_DIAS 71; BP_DIAS 72
[2021-09-04 05:36] VITALS: BP 108/71
[2021-09-04 06:06] LABS: HEMATOCRIT 26.9 % (42.0-52.0); HEMOGLOBIN 8.8 g/dl (13.5-17.5); MEAN CORPUSCULAR HGB CONC 32.7 g/dl (32.0-36.5); MEAN CORPUSCULAR VOLUME 94.7 fl (80.0-96.0); PLATELET COUNT, AUTOMATED 240 10^3/uL (150-450); RED BLOOD COUNT 2.84 10^6/uL (4.30-6.10); WHITE BLOOD COUNT 12.3 10^3/uL (4.0-10.0)
[2021-09-04 06:30] LABS: BLOOD UREA NITROGEN 20 MG/DL (7-18); CALCIUM LEVEL 8.8 MG/DL (8.8-10.2); CARBON DIOXIDE LEVEL 25 MEQ/L (21-32); CHLORIDE LEVEL 98 MEQ/L (98-107); CREATININE FOR GFR 1.05 MG/DL (0.70-1.30); GLOMERULAR FILTRATION RATE > 60.0 (>42); GLUCOSE, FASTING 164 MG/DL (70-100); POTASSIUM SERUM 4.3 MEQ/L (3.5-5.1); SODIUM LEVEL 132 MEQ/L (136-145)
[2021-09-04] MEDS: INSULIN LISPRO (NovoLOG) PER UNIT SC SCH ×4 (07:30→21:00)
[2021-09-04] MEDS: cefTRIAXone SOD 1 GM in D5W MINI-BAG PLUS 50 ML IV SCH (07:49)
[2021-09-04] MEDS: ASPIRIN 81MG ENTERIC TABLET PO SCH (07:50)
[2021-09-04] MEDS: FAMOTIDINE 20 MG TAB PO SCH (08:03)
[2021-09-04] MEDS: allopurinoL 100 MG TAB PO SCH (08:03)
[2021-09-04] MEDS: ASCORBIC ACID 500 MG TAB PO SCH (08:03)
[2021-09-04] MEDS: MULTIVITAMINS/MINERALS THERAP 1 TAB PO SCH (08:03)
[2021-09-04] MEDS: VITAMIN D 1,000 INTERNATIONAL UNITS TABLET PO SCH (08:03)
[2021-09-04] MEDS: DOXYCYCLINE HYCLATE 100 MG in D5W MINI-BAG PLUS 100 ML IV SCH ×2 (08:56→21:01)
[2021-09-04] MEDS ORDERED: VALSARTAN 40MG TABLET (DIOVAN) PO ONE (09:00)
[2021-09-04] MEDS ORDERED: PILL CUTTER 1 EACH XX PRN (11:25)
[2021-09-04] MEDS ORDERED: LIDOCAINE 1% MDV 20ML VIAL As Ordered ONE (13:45)
[2021-09-04] MEDS ORDERED: BUPIVACAINE HCL 0.5% 30ML VIAL As Ordered ONE (13:45)
[2021-09-04] MEDS ORDERED: fentaNYL 100 MCG/2 ML INJECTION As Ordered ONE (14:19)
[2021-09-04] MEDS ORDERED: MIDAZOLAM INJ 2MG/2ML VIAL (J2250 PER 1MG) As Ordered ONE (14:19)
[2021-09-04] MEDS ORDERED: oxyCODONE 5MG TAB PO PRN (14:35)
[2021-09-04] MEDS ORDERED: LR 1,000 ML IV SCH (14:35)
[2021-09-04] MEDS ORDERED: ONDANSETRON 4MG 2ML VIAL IV PRN (14:35)
[2021-09-04] MEDS ORDERED: fentaNYL 100 MCG/2 ML INJECTION IV PRN (14:35)
[2021-09-04 15:12] VITALS: BP 135/79
[2021-09-04] MEDS: DULoxetine 20 MG CAP (CYMBALTA) PO SCH (21:02)
[2021-09-04 22:00] VITALS: BP 111/57
[2021-09-05 06:00] VITALS: BP 125/75
[2021-09-05 06:37] LABS: HEMATOCRIT 26.7 % (42.0-52.0); HEMOGLOBIN 8.5 g/dl (13.5-17.5); MEAN CORPUSCULAR HEMOGLOBIN 30.1 pg (27.0-33.0); MEAN CORPUSCULAR HGB CONC 31.8 g/dl (32.0-36.5); MEAN CORPUSCULAR VOLUME 94.7 fl (80.0-96.0); PLATELET COUNT, AUTOMATED 255 10^3/uL (150-450); RED BLOOD COUNT 2.82 10^6/uL (4.30-6.10); WHITE BLOOD COUNT 10.3 10^3/uL (4.0-10.0)
[2021-09-05 07:19] LABS: BLOOD UREA NITROGEN 22 MG/DL (7-18); CALCIUM LEVEL 8.5 MG/DL (8.8-10.2); CARBON DIOXIDE LEVEL 24 MEQ/L (21-32); CHLORIDE LEVEL 99 MEQ/L (98-107); CREATININE FOR GFR 1.01 MG/DL (0.70-1.30); GLOMERULAR FILTRATION RATE > 60.0 (>42); GLUCOSE, FASTING 144 MG/DL (70-100); POTASSIUM SERUM 3.8 MEQ/L (3.5-5.1); SODIUM LEVEL 134 MEQ/L (136-145)
[2021-09-05] MEDS: cefTRIAXone SOD 1 GM in D5W MINI-BAG PLUS 50 ML IV SCH (07:42)
[2021-09-05] MEDS: INSULIN LISPRO (NovoLOG) PER UNIT SC SCH ×4 (07:42→21:00)
[2021-09-05] MEDS: ASPIRIN 81MG ENTERIC TABLET PO SCH (07:43)
[2021-09-05] MEDS: DOXYCYCLINE HYCLATE 100 MG in D5W MINI-BAG PLUS 100 ML IV SCH ×2 (07:43→21:23)
[2021-09-05] MEDS: VITAMIN D 1,000 INTERNATIONAL UNITS TABLET PO SCH (07:43)
[2021-09-05] MEDS: allopurinoL 100 MG TAB PO SCH (07:44)
[2021-09-05] MEDS: ASCORBIC ACID 500 MG TAB PO SCH (07:44)
[2021-09-05] MEDS: MULTIVITAMINS/MINERALS THERAP 1 TAB PO SCH (07:44)
[2021-09-05] MEDS: FAMOTIDINE 20 MG TAB PO SCH (07:45)
[2021-09-05] MEDS: SPIRONOLACTONE 12.5MG PER 1/2 TABLET PO SCH (07:47)
[2021-09-05] MEDS ORDERED: VALSARTAN 40MG TABLET (DIOVAN) PO ONE (09:00)
[2021-09-05] MEDS ORDERED: SILVER NITRATE APPLICATOR (1 = QTY 10) TOP ONE (11:45)
[2021-09-05 14:00] VITALS: BP 90/53
[2021-09-05 15:12] LABS: HEMATOCRIT 24.6 % (42.0-52.0); HEMOGLOBIN 8.2 g/dl (13.5-17.5); MEAN CORPUSCULAR HEMOGLOBIN 31.2 pg (27.0-33.0); MEAN CORPUSCULAR HGB CONC 33.3 g/dl (32.0-36.5); MEAN CORPUSCULAR VOLUME 93.5 fl (80.0-96.0); PLATELET COUNT, AUTOMATED 254 10^3/uL (150-450); RED BLOOD COUNT 2.63 10^6/uL (4.30-6.10); WHITE BLOOD COUNT 10.3 10^3/uL (4.0-10.0)
[2021-09-05 15:23] VITALS: BP 102/54
[2021-09-05] MEDS: DULoxetine 20 MG CAP (CYMBALTA) PO SCH (21:24)
[2021-09-05 22:00] VITALS: BP 109/54
[2021-09-06 05:49] VITALS: BP 113/58
[2021-09-06 06:03] LABS: WHITE BLOOD COUNT 9.3 10^3/uL (4.0-10.0)
[2021-09-06 06:04] LABS: HEMATOCRIT 25.5 % (42.0-52.0); HEMOGLOBIN 8.2 g/dl (13.5-17.5); MEAN CORPUSCULAR HEMOGLOBIN 29.9 pg (27.0-33.0); MEAN CORPUSCULAR HGB CONC 32.2 g/dl (32.0-36.5); MEAN CORPUSCULAR VOLUME 93.1 fl (80.0-96.0); PLATELET COUNT, AUTOMATED 259 10^3/uL (150-450); RED BLOOD COUNT 2.74 10^6/uL (4.30-6.10)
[2021-09-06 06:36] LABS: BLOOD UREA NITROGEN 14 MG/DL (7-18); CALCIUM LEVEL 8.4 MG/DL (8.8-10.2); CARBON DIOXIDE LEVEL 27 MEQ/L (21-32); CHLORIDE LEVEL 101 MEQ/L (98-107); CREATININE FOR GFR 0.71 MG/DL (0.70-1.30); GLOMERULAR FILTRATION RATE > 60.0 (>42); GLUCOSE, FASTING 137 MG/DL (70-100); POTASSIUM SERUM 3.7 MEQ/L (3.5-5.1); SODIUM LEVEL 136 MEQ/L (136-145)
[2021-09-06] MEDS: VITAMIN D 1,000 INTERNATIONAL UNITS TABLET PO SCH (08:19)
[2021-09-06] MEDS: INSULIN LISPRO (NovoLOG) PER UNIT SC SCH ×4 (08:19→19:52)
[2021-09-06] MEDS: allopurinoL 100 MG TAB PO SCH (08:19)
[2021-09-06] MEDS: ASPIRIN 81MG ENTERIC TABLET PO SCH (08:19)
[2021-09-06] MEDS: FAMOTIDINE 20 MG TAB PO SCH (08:19)
[2021-09-06] MEDS: ASCORBIC ACID 500 MG TAB PO SCH (08:20)
[2021-09-06] MEDS: MULTIVITAMINS/MINERALS THERAP 1 TAB PO SCH (08:20)
[2021-09-06] MEDS: cefTRIAXone SOD 1 GM in D5W MINI-BAG PLUS 50 ML IV SCH (08:30)
[2021-09-06] MEDS ORDERED: VALSARTAN 40MG TABLET (DIOVAN) PO SCH (09:00)
[2021-09-06] MEDS: DOXYCYCLINE HYCLATE 100 MG in D5W MINI-BAG PLUS 100 ML IV SCH ×2 (09:22→20:44)
[2021-09-06] MEDS: SPIRONOLACTONE 12.5MG PER 1/2 TABLET PO SCH (09:23)
[2021-09-06] MEDS: ROSUVASTATIN 10 MG TAB (CRESTOR) PO SCH (20:44)
[2021-09-06] MEDS: DULoxetine 20 MG CAP (CYMBALTA) PO SCH (20:44)
[2021-09-06 22:00] VITALS: BP 113/55
[2021-09-07 06:04] VITALS: BP 117/57
[2021-09-07] MEDS: ASPIRIN 81MG ENTERIC TABLET PO SCH (09:10)
[2021-09-07] MEDS: VITAMIN D 1,000 INTERNATIONAL UNITS TABLET PO SCH (09:10)
[2021-09-07] MEDS: cefTRIAXone SOD 1 GM in D5W MINI-BAG PLUS 50 ML IV SCH (09:10)
[2021-09-07] MEDS: allopurinoL 100 MG TAB PO SCH (09:10)
[2021-09-07] MEDS: FAMOTIDINE 20 MG TAB PO SCH (09:10)
[2021-09-07] MEDS: MULTIVITAMINS/MINERALS THERAP 1 TAB PO SCH (09:10)
[2021-09-07] MEDS: ASCORBIC ACID 500 MG TAB PO SCH (09:10)
[2021-09-07] MEDS: INSULIN LISPRO (NovoLOG) PER UNIT SC SCH ×4 (09:13→21:00)
[2021-09-07] MEDS: METOPROLOL SUCC (TopROL XL) 50MG **XL** TAB PO SCH (09:15)
[2021-09-07] MEDS: VALSARTAN 40MG TABLET (DIOVAN) PO SCH (09:20)
[2021-09-07] MEDS: SPIRONOLACTONE 12.5MG PER 1/2 TABLET PO SCH (09:21)
[2021-09-07 10:15] LABS: HEMOGLOBIN 8.6 g/dl (13.5-17.5); MEAN CORPUSCULAR HEMOGLOBIN 30.8 pg (27.0-33.0); MEAN CORPUSCULAR HGB CONC 31.9 g/dl (32.0-36.5); MEAN CORPUSCULAR VOLUME 96.8 fl (80.0-96.0); PLATELET COUNT, AUTOMATED 298 10^3/uL (150-450); RED BLOOD COUNT 2.79 10^6/uL (4.30-6.10); WHITE BLOOD COUNT 9.3 10^3/uL (4.0-10.0)
[2021-09-07] MEDS: DOXYCYCLINE HYCLATE 100 MG in D5W MINI-BAG PLUS 100 ML IV SCH ×2 (10:23→20:01)
[2021-09-07 10:38] LABS: BLOOD UREA NITROGEN 8 MG/DL (7-18); CALCIUM LEVEL 8.5 MG/DL (8.8-10.2); CARBON DIOXIDE LEVEL 27 MEQ/L (21-32); CHLORIDE LEVEL 103 MEQ/L (98-107); CREATININE FOR GFR 0.69 MG/DL (0.70-1.30); GLOMERULAR FILTRATION RATE > 60.0 (>42); GLUCOSE, FASTING 172 MG/DL (70-100); SODIUM LEVEL 138 MEQ/L (136-145)
[2021-09-07 14:00] VITALS: BP 125/60
[2021-09-07] MEDS: DULoxetine 20 MG CAP (CYMBALTA) PO SCH (20:00)
[2021-09-07] MEDS: ROSUVASTATIN 10 MG TAB (CRESTOR) PO SCH (20:01)
[2021-09-07 22:00] VITALS: BP 110/54
[2021-09-08 06:04] LABS: HEMOGLOBIN 8.4 g/dl (13.5-17.5); MEAN CORPUSCULAR HEMOGLOBIN 30.4 pg (27.0-33.0); MEAN CORPUSCULAR VOLUME 97.8 fl (80.0-96.0); RED BLOOD COUNT 2.76 10^6/uL (4.30-6.10); WHITE BLOOD COUNT 10.1 10^3/uL (4.0-10.0)
[2021-09-08 06:05] LABS: MEAN CORPUSCULAR HGB CONC 31.1 g/dl (32.0-36.5); PLATELET COUNT, AUTOMATED 301 10^3/uL (150-450)
[2021-09-08 06:07] VITALS: BP 111/57
[2021-09-08 06:27] LABS: BLOOD UREA NITROGEN 8 MG/DL (7-18); CALCIUM LEVEL 8.8 MG/DL (8.8-10.2); CARBON DIOXIDE LEVEL 28 MEQ/L (21-32); CHLORIDE LEVEL 105 MEQ/L (98-107); CREATININE FOR GFR 0.73 MG/DL (0.70-1.30); GLOMERULAR FILTRATION RATE > 60.0 (>42); GLUCOSE, FASTING 134 MG/DL (70-100); POTASSIUM SERUM 3.7 MEQ/L (3.5-5.1); SODIUM LEVEL 139 MEQ/L (136-145)
[2021-09-08] MEDS: INSULIN LISPRO (NovoLOG) PER UNIT SC SCH ×4 (07:30→21:00)
[2021-09-08] MEDS: ASPIRIN 81MG ENTERIC TABLET PO SCH (09:07)
[2021-09-08] MEDS: MULTIVITAMINS/MINERALS THERAP 1 TAB PO SCH (09:07)
[2021-09-08] MEDS: FAMOTIDINE 20 MG TAB PO SCH (09:07)
[2021-09-08] MEDS: ASCORBIC ACID 500 MG TAB PO SCH (09:08)
[2021-09-08] MEDS: allopurinoL 100 MG TAB PO SCH (09:08)
[2021-09-08] MEDS: VITAMIN D 1,000 INTERNATIONAL UNITS TABLET PO SCH (09:08)
[2021-09-08] MEDS: SPIRONOLACTONE 12.5MG PER 1/2 TABLET PO SCH (09:13)
[2021-09-08] MEDS: METOPROLOL SUCC (TopROL XL) 50MG **XL** TAB PO SCH (09:14)
[2021-09-08] MEDS: VALSARTAN 40MG TABLET (DIOVAN) PO SCH (10:01)
[2021-09-08] MEDS ORDERED: cefTRIAXone SOD 1 GM in D5W MINI-BAG PLUS 50 ML IV SCH (11:00)
[2021-09-08] MEDS ORDERED: DOXYCYCLINE HYCLATE 100 MG in D5W MINI-BAG PLUS 100 ML IV SCH (12:00)
[2021-09-08 14:00] VITALS: BP 100/51
[2021-09-08 22:00] VITALS: BP_SYST 113; BP_SYST 130; BP_DIAS 48; BP_DIAS 52
[2021-09-08] MEDS: DULoxetine 20 MG CAP (CYMBALTA) PO SCH (22:02)
[2021-09-08] MEDS: ROSUVASTATIN 10 MG TAB (CRESTOR) PO SCH (22:02)
[2021-09-09 05:42] VITALS: BP 112/50
[2021-09-09 06:11] LABS: HEMATOCRIT 25.9 % (42.0-52.0); HEMOGLOBIN 8.2 g/dl (13.5-17.5); MEAN CORPUSCULAR HEMOGLOBIN 31.4 pg (27.0-33.0); MEAN CORPUSCULAR HGB CONC 31.7 g/dl (32.0-36.5); MEAN CORPUSCULAR VOLUME 99.2 fl (80.0-96.0); PLATELET COUNT, AUTOMATED 311 10^3/uL (150-450); RED BLOOD COUNT 2.61 10^6/uL (4.30-6.10)
[2021-09-09] MEDS: FAMOTIDINE 20 MG TAB PO SCH (08:23)
[2021-09-09] MEDS: SPIRONOLACTONE 12.5MG PER 1/2 TABLET PO SCH (08:23)
[2021-09-09] MEDS: VITAMIN D 1,000 INTERNATIONAL UNITS TABLET PO SCH (08:23)
[2021-09-09] MEDS: ASCORBIC ACID 500 MG TAB PO SCH (08:23)
[2021-09-09] MEDS: INSULIN LISPRO (NovoLOG) PER UNIT SC SCH ×2 (08:23→12:08)
[2021-09-09] MEDS: allopurinoL 100 MG TAB PO SCH (08:23)
[2021-09-09] MEDS: MULTIVITAMINS/MINERALS THERAP 1 TAB PO SCH (08:23)
[2021-09-09] MEDS: ASPIRIN 81MG ENTERIC TABLET PO SCH (08:23)
[2021-09-09 09:29] VITALS: BP 113/52
[2021-09-09] MEDS: METOPROLOL SUCC (TopROL XL) 50MG **XL** TAB PO SCH (09:29)
[2021-09-09] MEDS: VALSARTAN 40MG TABLET (DIOVAN) PO SCH (09:29)
[2021-09-09] MEDS ORDERED: CRES10TA PO (11:29)
[2021-09-09] MEDS ORDERED: LASI20TA3 PO (11:29)
[2021-09-09] MEDS ORDERED: VALS40TA9 PO (11:29)
== END 2021-09-09 14:38 | disposition home or self-care (01) | DRG 314 ==
LOC: M MSPAV 08-31 00:56 → UNDOADMIN 08-31 00:56 → OBSVTOIN 09-01 16:04 → UNDODISIN 09-09 14:38
PROVIDERS: ADMIT Internal Medicine; ATTEND Internal Medicine
PROC: 0Y6P0Z0 Detachment at Right 1st Toe, Complete, Open Approach (ICD-10-PCS; principal; 2021-08-31)
PROC: B246ZZZ Ultrasonography of Right and Left Heart (ICD-10-PCS; 2021-08-31)
DX: E11.69 Type 2 diabetes mellitus with other specified complication (principal); I50.22 Chronic systolic (congestive) heart failure; M86.9 Osteomyelitis, unspecified; E11.52 Type 2 diabetes mellitus with diabetic peripheral angiopathy with gangrene; E87.1 Hypo-osmolality and hyponatremia; N17.9 Acute kidney failure, unspecified; Z95.0 Presence of cardiac pacemaker; I11.0 Hypertensive heart disease with heart failure; M10.9 Gout, unspecified; F32.A Depression, unspecified; K21.9 Gastro-esophageal reflux disease without esophagitis; Z79.82 Long term (current) use of aspirin; Z79.84 Long term (current) use of oral hypoglycemic drugs; Z79.899 Other long term (current) drug therapy; Z88.8 Allergy status to other drugs, medicaments and biological substances; D64.9 Anemia, unspecified; E78.5 Hyperlipidemia, unspecified; L03.031 Cellulitis of right toe; E11.621 Type 2 diabetes mellitus with foot ulcer; L97.519 Non-pressure chronic ulcer of other part of right foot with unspecified severity; E11.42 Type 2 diabetes mellitus with diabetic polyneuropathy; I95.1 Orthostatic hypotension

== ENCOUNTER → 2022-06-12 | Outpatient (REF) | payer BC, OTHER, MEDICARE ==
[~2022-06-12] MED LIST changes: +ASPI81TA26 PO; +CRES10TA PO; +FAMO1TAB11 PO; +FARX1TAB5 PO; +FURO40TA2 PO; +LASI20TA3 PO; +LOPI600T PO; +METO50TA7 PO; +POTA1TAB23 PO; +SPIR-10 PO; +THERTAB52 PO; +VALS40TA9 PO
== END ==
LOC: M LAB REF 12:27
PROVIDERS: ATTEND Podiatrist Foot & Ankle Surgery
DX: L03.031 Cellulitis of right toe (principal)